=== PATIENT | male | born 1975 | race African-American/Black ===

== ENCOUNTER 2019-03-14 22:52 | Emergency (ER) | payer MEDICAID ==
[~2019-03-14] VITALS: Ht 185.4 cm; Wt 91.2 kg
--- NOTE | 2019-03-14 23:06 | NUR ---
ED Nurse Note: Patient presents with complaints of pus filled lesions on left middle fingers. patient also reports irregular bowel habits, diarrhea and dysuria.
[2019-03-14 23:07] VITALS: BP 113/78
[2019-03-14] MEDS ORDERED: CLINDAMYCIN HC300 MG ORAL (23:52)
[2019-03-14] MEDS ORDERED: IBUPROFEN600 MG ORAL (23:52)
[2019-03-14] MEDS ORDERED: MUPIROCIN22 GM TOPIC (23:52)
--- NOTE | 2019-03-14 23:52 | Emergency Room Report ---
History of Present Illness General Chief Complaint: Skin Rash/Abscess Source: Patient Present Illness HPI This a 43-year-old male who is left-hand dominant. He presents with chief complaint of left finger swelling. Injury occurred 2 days ago. 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 Pain is 8 out of 10. Throbbing in nature. Swollen. He tried to poke it with a needle. It got worse. Denies any other injury. Tetanus not up-to- date. Pain is 8 out of 10. Worse with palpation and movement. Allergies: Coded Allergies: No Known Allergies (Unverified , 03/14/19) Patient History Past Medical History: see triage record, old chart reviewed Past Surgical History: none Pertinent Family History: none Social History: Reports: drug use Immunizations: other Reviewed Nursing Documentation: PMH: Agreed; PSxH: Agreed Nursing Documentation-PMH Past Medical History: No Stated History Review of Systems Eye: Denies: eye pain, blurred vision ENT: Denies: ear pain, nose congestion, throat swelling Respiratory: Denies: cough, shortness of breath Cardiovascular: Denies: chest pain, palpitations Gastrointestinal: Denies: abdominal pain, diarrhea, nausea, vomiting Musculoskeletal: Reports: joint pain, joint swelling, muscle pain; Denies: back pain Skin: Denies: rash Neurological: Denies: headache, numbness Endocrine: Denies: increased thirst, increased urine Hematologic/Lymphatic: Denies: easy bruising All Other Systems: negative except mentioned in HPI Physical Exam Vital Signs Date Time Temp Pulse Resp B/P (MAP) Pulse Ox O2 Delivery O2 Flow Rate FiO2 03/14/19 22:56 97.9 80 16 113/78 (90) 96 Room Air Vitals normal Sp02 EP Interpretation: reviewed, normal General Appearance: well appearing, no apparent distress, alert Head: normocephalic, atraumatic Eyes: bilateral eye PERRL, bilateral eye EOMI ENT: hearing grossly normal, normal pharynx Neck: full range of motion, supple, no meningismus Respiratory: chest non-tender, lungs clear, normal breath sounds Cardiovascular #1: regular rate, rhythm, no murmur Gastrointestinal: normal bowel sounds, non tender, no mass, no organomegaly, no bruit, non-distended Musculoskeletal: back normal, gait/station normal, normal range of motion, other - Left ring finger: Over the middle phalanx there is a puncture wound with edema and tenderness. He has range of motion to the MCP, PIP, DIP joint. Sensation normal. Psychiatric: mood/affect normal Procedures Incision and Drainage Incision and Drainage : Consent: Verbal Site: Left ring finger Blade Size: 11 I & D Procedure: betadine prep, sterile drapes applied Wound Location: upper extremity Anesthesia: 1% Lidocaine Volume Anesthetic (ccs): 1 Patient Tolerated: Well Complications: None Progress Area cleaned with Betadine. Local anesthetic with 1% lidocaine without epinephrine. I made a small incision with 11 blade scalpel. There is small amount of purulent discharge expressed. Patient tolerated procedure without any problem. Medical Decision Making Diagnostic Impression: Primary Impression: Abscess Additional Impression: Methamphetamine abuse ER Course Presents with a superficial finger abscess. No evidence of tenosynovitis. No evidence of septic joint. Last Vital Signs Date Time Temp Pulse Resp B/P (MAP) Pulse Ox O2 Delivery O2 Flow Rate FiO2 03/14/19 23:07 97.9 89 16 113/78 96 Room Air Status: improved Disposition: HOME, SELF-CARE Condition: Stable Scripts Mupirocin* (MUPIROCIN*) 22 Gm Oint...g. 1 APPLIC TOPIC THREE TIMES A DAY, #22 GM Prov: Kenny Best MD 03/14/19 Ibuprofen* (MOTRIN*) 600 Mg Tablet 600 MG ORAL THREE TIMES A DAY, #30 TAB 0 Refills Prov: Kenny Best MD 03/14/19 Clindamycin Hcl (CLINDAMYCIN HCL) 300 Mg Capsule 300 MG ORAL THREE TIMES A DAY, #21 CAP Prov: Kenny Best MD 03/14/19 Patient Instructions: Abscess Additional Instructions: Stop using drugs. Clean wound with hydrogen peroxide first. Then apply antibiotic ointment. Follow-up with your doctor in 2 3 days for recheck. Return if worse. Kenny Best MD Mar 14, 2019 23:52
[2019-03-15] MEDS: Clindamycin 150mg cap ORAL ONE (00:04)
[2019-03-15] MEDS: Tetanus/Diptheria/Pertussis IM ONE (00:04)
[2019-03-15 00:08] VITALS: BP 120/76
--- NOTE | 2019-03-15 00:08 | NUR ---
ER DISCHARGE NOTE: Patient is cleared to be discharged per ERMD, pt is aox4, on room air, with stable vital signs. pt was given dc and prescription instructions, pt was able to verbalize understanding, pt id bandremoved without complications. pt is able to ambulate with steady gait. pt took all belongings.
== END 2019-03-15 00:08 | disposition home or self-care (01) ==
LOC: EMR 23:11
DX: L02.512 Cutaneous abscess of left hand (principal); Z23 Encounter for immunization
CPT/HCPCS: 10060; 90471; 90715; 99283